=== PATIENT | male | born 1960 | race Caucasian/White ===

== ENCOUNTER 2016-12-24 14:38 | Emergency (ER) | payer OTHER ==
[~2016-12-24] VITALS: Ht 162.6 cm; Wt 54.5 kg
[~2016-12-24 14:38] MED LIST: AMLO5 PO; DIAZ5 PO; DIVA500T PO; METO25TA3 PO
[2016-12-24 14:39] VITALS: BP 128/84; PULSE 123; RESP 20; TEMP 95; O2SAT 97
--- NOTE | 2016-12-24 15:48 | PD ---
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 Patient decided that he no longer wanted chemotherapy following his discharge from the hospital. He states that he simply wants his pain to be under control. He is accompanied by his who states she has been calling hospice but was told she needs a referral. She also states that she feels the OR has given up on him since he does not want treatment. She states she has been trying to get her to go to the hospital to get this referral over the last 2 weeks but he has not been wanting to. She agrees that they want him to be comfortable. Patient does report generalized pain mostly in his abdomen that wraps around to his right sided back. He does feel short of breath at times. Pain is constant, sometimes sharp. He has had no vomiting. No diarrhea. No fever or chills. Appetite is decreased. also reports a weight loss since his discharge. PFSH Past Medical History Blood Disorders: No Cancer: No Cardiovascular Problems: Yes High Cholesterol: Yes Chemotherapy: No Diminished Hearing: Yes Endocrine: No Genitourinary: No Headaches: Yes Hypertension: Yes Immune Disorder: No Musculoskeletal: No Neurologic: Yes Psychiatric: Yes (MOOD DISORDER) Reproductive: Yes Respiratory: Yes (ASTHMA) Pancreatitis: Yes Seizures: Yes PNEUMOCCOCAL Vaccine (Year): 2 Past Surgical History AICD: No Ear Surgery: Yes Genitourinary Surgery: Yes Joint Replacement: No Neurologic Surgery: Yes (hx of TBI in 2004 with brain surgery) Pacemaker: No Other Surgery: Yes Social History Alcohol Use: Yes (DAILY) Tobacco Use: Yes (12/05 PPD) Substance Use: No Allergies-Medications (Allergen,Severity, Reaction): Coded Allergies: No Known Allergies (Verified , 10/16/16) Reported Meds & Prescriptions Reported Meds & Active Scripts Active Metoprolol Tartrate 25 Mg Tab 50 Mg PO Q12HR Norvasc (Amlodipine Besylate) 5 Mg Tab 5 Mg PO DAILY Valium (Diazepam) 5 Mg Tab 5 Mg PO HS PRN Reported Divalproex DR (Divalproex Sodium) 500 Mg Tabdr 500 Mg PO BID Review of Systems Except as stated in HPI: all other systems reviewed are Neg Physical Exam Narrative GENERAL: Chronically ill-appearing male patient, sitting up in the chair, in no acute distress SKIN: Warm and dry. HEAD: Atraumatic. Normocephalic. EYES: Pupils equal and round. Slight scleral icterus.. No injection or drainage. ENT: No nasal bleeding or discharge. Mucous membranes pink and moist. NECK: Trachea midline. No JVD. CARDIOVASCULAR: Tachycardic rate and rhythm. No murmur appreciated. RESPIRATORY: No accessory muscle use. Diminished to auscultation. Breath sounds equal bilaterally. GASTROINTESTINAL: Abdomen nondistended, somewhat firm, tender to palpate. Most tender in the left upper quadrant and epigastrium.. MUSCULOSKELETAL: No obvious deformities. No clubbing. No cyanosis. No edema. NEUROLOGICAL: Awake and alert. No obvious cranial nerve deficits. Motor grossly within normal limits. Normal speech. Data Data Last Documented VS Vital Signs Date Time Temp Pulse Resp B/P Pulse Ox O2 Delivery O2 Flow Rate FiO2 12/24/16 14:39 95.0 123 20 128/84 97 Room Air Orders Hospice Consult (12/24/16 15:49) MDM Medical Decision Making Medical Screen Exam Complete: Yes Emergency Medical Condition: Yes Medical Record Reviewed: Yes Differential Diagnosis Metastatic disease versus acute on chronic pancreatitis versus gastritis versus sepsis Narrative Course 56-year-old male presents to the emergency department for evaluation of abdominal pain. Patient does have metastatic small cell carcinoma to the liver area he appears ill. He is tachycardic. He does have left upper quadrant and epigastric tenderness to palpation. I discussed the patient with Dr. Troy, my attending physician. A consult has been placed to hospice. I discussed with the and the patient if they wanted further investigation and they state that they do not. They said many times they just want his pain to be under control and he would like hospice to come to the house to keep him comfortable. Diagnosis Primary Impression: Abdominal pain Qualified Code: R10.84 - Generalized abdominal pain Additional Impression: Small cell carcinoma Condition: Stable GarciaVenus lester CAROL Dec 24, 2016 15:48
--- NOTE | 2016-12-24 16:25 | PD ---
Physical Exam Time Seen by Provider: 16:24 Narrative Patient was initially evaluated by Venus Garcia DNP. See her note for initial evaluation and assessment. Data Data Last Documented VS Vital Signs Date Time Temp Pulse Resp B/P Pulse Ox O2 Delivery O2 Flow Rate FiO2 12/24/16 14:39 95.0 123 20 128/84 97 Room Air Orders Hospice Consult (12/24/16 15:49) Hydromorphone Pf Inj (Dilaudid Pf Inj) (12/24/16 16:30) Ondansetron Odt (Zofran Odt) (12/24/16 16:30) MDM Medical Record Reviewed: Yes Supervised Visit with SATISH: No Narrative Course Patient was initially evaluated by Venus Garcia DNP. See her note for initial evaluation and assessment. Patient presents, accompanied by his , to initiate home hospice care. He has history of small cell carcinoma that has metastasized to his liver and does not wish to receive any further medical treatment or chemotherapy. The family and the patient are requesting for care. Dr. Troy is aware of the patient. Dilaudid and Zofran ordered. Case management involved and hospice is coming to see the patient. 1649: Hospice care nurse came and talked to the patient and family and they have opted for inpatient hospice care. The patient will be discharged to [facility] and will be transported to the facility from the ER. Diagnosis Primary Impression: Abdominal pain Qualified Code: R10.84 - Generalized abdominal pain Additional Impression: Small cell carcinoma Disposition: 51 HOSPICE/MED FACILITY Condition: Stable Kasey Rush Dec 24, 2016 16:24
[2016-12-24] MEDS ORDERED: ONDANSETRON ODT 4 MG TAB PO ONE (16:30)
[2016-12-24] MEDS ORDERED: HYDROmorphone HCL PF 1 MG/ML VIAL IM ONE (16:30)
== END 2016-12-24 19:30 | disposition hospice, inpatient (51) ==
LOC: NEPB 14:38
DX: R10.84 Generalized abdominal pain (principal); E78.00 Pure hypercholesterolemia, unspecified; I10 Essential (primary) hypertension; J45.909 Unspecified asthma, uncomplicated; F17.210 Nicotine dependence, cigarettes, uncomplicated; R00.0 Tachycardia, unspecified; C78.7 Secondary malignant neoplasm of liver and intrahepatic bile duct; Z85.118 Personal history of other malignant neoplasm of bronchus and lung
CPT/HCPCS: 96372; 99283; J1170